=== PATIENT | female | born 1990 | race African-American/Black ===

== ENCOUNTER 2016-11-06 13:15 | Inpatient (IN) | payer OTHER ==
[2016-11-06] MEDS ORDERED: AMPICILLIN - 100 ML IVPB ONE (13:40)
[2016-11-06] MEDS: ELECTROLYTE-148 SOLN 1,000 ML IV SCH ×2 (14:00→18:00)
[2016-11-06 15:04] VITALS: BMI 25.8
[2016-11-06] MEDS ORDERED: BUTORPHANOL TARTRATE 1 MG/ML VIAL IVPUSH ONE (15:09)
--- NOTE | 2016-11-06 15:11 | PN ---
Progress Note (short form) - Note Progress Note: cx 5 cm, 80 vx -2 mi, fhr cat 1, contraction q 3 min, wants pain meds
[2016-11-06 15:37] LABS: BASOPHIL 0.1 % (0-2.0); EOSINOPHIL 0.8 % (0-4.5); MCH 28.2 pg (25.7-33.7); MCHC 32.8 g/dl (32.0-36.0); MEAN CELL VOLUME 85.9 fl (80-96); MEAN PLT VOLUME 9.1 fl (7.5-11.1); NEUTROPHILS 74.5 % (42.8-82.8); PLATELET COUNT 177 K/MM3 (134-434); RDW 15.4 % (11.6-15.6); WHITE BLOOD COUNT 9.5 K/mm3 (4.0-10.0)
[2016-11-06 15:49] LABS: INR 0.91 (0.82-1.09)
[2016-11-06 15:51] LABS: ACTIVATED PTT 29.1 SECONDS (26.9-34.4)
[2016-11-06 16:01] LABS: CALCIUM 8.6 mg/dL (8.5-10.1); COCKROFT - GAULT 162.7835; CREATININE 0.6 mg/dL (0.55-1.02)
[2016-11-06] MEDS ORDERED: OXYTOCIN 15 UNITS/ LR 250 ML 250 ML IVPB SCH ×2 (17:30→18:30)
[2016-11-06] MEDS: AMPICILLIN - 100 ML IVPB SCH ×2 (17:59→22:00)
[2016-11-06] MEDS ORDERED: AMPICILLIN - 100 ML IVPB SCH (18:00)
--- NOTE | 2016-11-06 18:35 | PN ---
Progress Note (short form) - Note Progress Note: cx 5 cm, 80 vx -2, mi ,bulging, arom, clear , fhr cat 1 irregular contraction, on pitocin
--- NOTE | 2016-11-06 21:29 | PN ---
Progress Note (short form) - Note Progress Note: cx 9 cm , 100 vx 0 mr, fhr cat1, contraction q 2min
[2016-11-06] MEDS ORDERED: FENTANYL/BUPIVACAINE/NS/PF - PCEA - 50 ML DISP.SYRIN EP SCH (21:30)
--- NOTE | 2016-11-06 21:34 | HP ---
Past Medical History - Primary Care Physician PCP:: Guillermo Balderrama - Admission Chief Complaint: 39.6 weeks, labor History of Present Illness: 26 yo f ,eedc by sono 11/07/16 in labor, no rom, no bleeding , cx 5 cm 80 vx -2 mi, fhr cat1, contraction irregular, care at [facility] [address] History Source: Patient Limitations to Obtaining History: No Limitations - Past Medical History ...: 6 ...Para: 1 ...Term: 0 ...: 1 ...Spon : 0 ...Induced : 4 ...Multiple Gestation: 0 ...LMP: 02/02/16 ... Weeks Gestation by Dates: 39.5 ...EDC by Dates: 11/08/16 ...EDC by Sono: 12/08/16 Infectious Disease: Yes: STD's (hx of gc chl 3 years ago) - Past Surgical History Hx Myomectomy: No Hx Transabdominal Cerclage: No - Smoking History Smoking history: Current every day smoker Have you smoked in the past 12 months: Yes Aproximately how many cigarettes per day: 2 - Alcohol/Substance Use Hx Alcohol Use: Yes History of Substance Use: reports: None - Social History History of Recent Travel: No Home Medications - Allergies Allergies/Adverse Reactions: Allergies Allergy/AdvReac Type Severity Reaction Status Date / Time No Known Allergies Allergy Verified 11/06/16 14:47 - Home Medications Home Medications: Ambulatory Orders Vits #93/Iron Fum/FA [ Formula Tablet] 1 each PO DAILY Review of Systems - Review of Systems Constitutional: reports: No Symptoms Eyes: reports: No Symptoms HENT: reports: No Symptoms Neck: reports: No Symptoms Cardiovascular: reports: No Symptoms Respiratory: reports: No Symptoms Gastrointestinal: reports: No Symptoms Genitourinary: reports: No Symptoms Breasts: reports: No Symptoms Reported Musculoskeletal: reports: No Symptoms Integumentary: reports: No Symptoms Neurological: reports: No Symptoms Endocrine: reports: No Symptoms Hematology/Lymphatic: reports: No Symptoms Psychiatric: reports: No Symptoms Physical Exam - Maternity Vital Signs: Vital Signs Temperature 98.4 F 11/06/16 20:30 Pulse Rate 83 11/06/16 20:30 Respiratory Rate 18 11/06/16 20:30 Blood Pressure 105/65 11/06/16 20:30 O2 Sat by Pulse Oximetry (%) 100 11/06/16 20:30 Constitutional: Yes: Well Nourished, No Distress, Calm Eyes: Yes: WNL, Conjunctiva Clear, EOM Intact HENT: Yes: WNL, Atraumatic, Normocephalic Neck: Yes: WNL, Supple, Trachea Midline Cardiovascular: Yes: WNL, Regular Rate and Rhythm Breast(s): Yes: WNL - Abdominal Exam/OB Fundal Height: 40 Number of Fetuses: Single Presentation: Vertex Contractions: Yes Regularity: Irregular Intensity: Mod/Strong Monitor Mode: External Heart Rate Location: [facility] Category: I Accelerations: Uniform Decelerations: None - Vaginal Exam/OB Vaginal Bleediing: No Speculum Exam: No Dilatation (cm): 5 cm Effacement (%): 80 Amniotic Membrane Status: Intact Presentation: Vertex/Position Station: -2 - Physical Exam Musculoskeletal: Yes: WNL Edema: LLE: Trace, RLE: Trace Psychiatric: Yes: WNL - Labs Lab Results: CBC, BMP 11/06/16 14:30 11/06/16 14:30 Hemorrhage Risk Assessment - Risk Factors Risk Score: 0 Risk Level: Low Risk Problem List - Problems (1) with 39 completed weeks gestation Code(s): Z3A.39 - 39 WEEKS GESTATION OF (2) Labor established Code(s): UWM4322 - Assessment/Plan admit for vaginal delivery, fhm, if contraction irregular needs pitocin stimulation, rba discussed
[2016-11-06] MEDS ORDERED: ELECTROLYTE-148 SOLN 1,000 ML IV SCH (22:00)
[2016-11-07] MEDS ORDERED: WITCH HAZEL 50% (TUCKS) 40 PAD/JAR PAD TP PRN (00:24)
[2016-11-07] MEDS ORDERED: BENZOCAINE 20% 57 GM BOTTLE TP PRN (00:24)
[2016-11-07] MEDS ORDERED: BENZOCAINE 28 GM HEMORRHOIDAL OINTMENT TP PRN (00:24)
[2016-11-07] MEDS ORDERED: METHYLERGONOVINE MALEATE 0.2 MG/1 ML AMP IM PRN (00:24)
[2016-11-07] MEDS ORDERED: BISACODYL 10 MG SUPP.RECT RC PRN (00:24)
[2016-11-07] MEDS ORDERED: D5W-LR W/ 20 UNITS OXYTOCIN 1,000 ML IV SCH (00:30)
[2016-11-07 00:35] LABS: ART PUNCT SITE OTHER; ARTERIAL BLD GAS O2 SATURATION 61.1 % (90-98.9); ARTERIAL BLOOD GAS HCO3 21.9 meq/L (22-26); ARTERIAL BLOOD GAS pH 7.35 (7.35-7.45); LPM/O2% 21%; PT. ON O2? no
[2016-11-07 00:36] LABS: ARTERIAL BLOOD GAS PO2 30.6 mmHg (80-100); TYPE OF O2 room air
[2016-11-07 00:38] LABS: VENOUS BLOOD GAS HCO3 21.9 meq/L (19-25); VENOUS PH 7.37 (7.32-7.42)
--- NOTE | 2016-11-07 00:39 | PN ---
Progress Note (short form) - Note Progress Note: delivery note paige, cord around neck ,once, reduced , ant and post shoulder no difficulty, live baby boy, 8/9, no episiotomy, no complication, ebl 300 cc Problem List - Problems (1) with 39 completed weeks gestation Code(s): Z3A.39 - 39 WEEKS GESTATION OF (2) Labor established Code(s): AGO1308 -
[2016-11-07] MEDS: ACETAMINOPHEN 325 MG TABLET (FP) PO PRN ×2 (08:04→20:16)
[2016-11-07] MEDS: IBUPROFEN 600 MG TABLET (FP) PO PRN ×2 (08:05→20:16)
[2016-11-07] MEDS: FERROUS SO4 325 MG TABLET (FP) PO SCH ×2 (09:32→21:38)
[2016-11-07] MEDS: PRENATAL VITAMINS W/ FOLIC ACID TABLET (FP) PO SCH (09:32)
[2016-11-07] MEDS ORDERED: DIPHTH,PERTUSS(ACELL),TET 0.5 ML DISP.SYRIN IM ONE (10:00)
[2016-11-07] MEDS ORDERED: PRENATAL VITAMINS W/ FOLIC ACID TABLET (FP) PO SCH (10:00)
[2016-11-08 07:08] LABS: BASOPHIL 0.3 % (0-2.0); EOSINOPHIL 1.7 % (0-4.5); MCH 28.1 pg (25.7-33.7); MCHC 32.8 g/dl (32.0-36.0); MEAN CELL VOLUME 85.6 fl (80-96); MEAN PLT VOLUME 8.6 fl (7.5-11.1); NEUTROPHILS 70.4 % (42.8-82.8); PLATELET COUNT 154 K/MM3 (134-434); RDW 15.7 % (11.6-15.6); WHITE BLOOD COUNT 8.7 K/mm3 (4.0-10.0)
[2016-11-08] MEDS: ACETAMINOPHEN 325 MG TABLET (FP) PO PRN ×2 (07:56→18:04)
[2016-11-08] MEDS: IBUPROFEN 600 MG TABLET (FP) PO PRN ×2 (07:56→18:04)
--- NOTE | 2016-11-08 08:52 | PN ---
Post Progress Note - Subjective Subjective: 26 yo Para 2, status post normal vaginal delivery, seen and evaluated. Doing well. She's breast feeding. Type of Delivery: Vital Signs: Vital Signs Temperature 98.4 F 11/08/16 07:42 Pulse Rate 103 H 11/08/16 07:42 Respiratory Rate 18 11/08/16 07:42 Blood Pressure 115/73 11/08/16 07:42 O2 Sat by Pulse Oximetry (%) 100 11/07/16 01:15 Breast Exam: Yes: Soft Uterus: Yes: Fundus Firm Abdomen/GI: Yes: Abdomen soft, Tolerating PO Lochia: Yes: Rubra Lochia, amount: Moderate Extremities: Yes: Calves non-tender Perineum: Yes: Intact Activity: Ambulating - Labs Labs: CBC WBC 8.7 K/mm3 (4.0-10.0) 11/08/16 06:00 RBC 3.49 M/mm3 (3.60-5.2) L 11/08/16 06:00 Hgb 9.8 GM/dL (10.7-15.3) L D 11/08/16 06:00 Hct 29.9 % (32.4-45.2) L D 11/08/16 06:00 MCV 85.6 fl (80-96) 11/08/16 06:00 MCHC 32.8 g/dl (32.0-36.0) 11/08/16 06:00 RDW 15.7 % (11.6-15.6) H 11/08/16 06:00 Plt Count 154 K/MM3 (134-434) 11/08/16 06:00 MPV 8.6 fl (7.5-11.1) 11/08/16 06:00 Neutrophils % 70.4 % (42.8-82.8) 11/08/16 06:00 Lymphocytes % 19.1 % (8-40) 11/08/16 06:00 Monocytes % 8.5 % (3.8-10.2) 11/08/16 06:00 Eosinophils % 1.7 % (0-4.5) D 11/08/16 06:00 Basophils % 0.3 % (0-2.0) 11/08/16 06:00 Problem List - Problems (1) Status post normal vaginal delivery Code(s): HKR6213 - Assessment/Plan Status post normal vaginal delivery Stable Continue routine care
--- NOTE | 2016-11-08 08:54 | DS ---
Physical Exam-GALLERY [facility]OST Vital Signs: Vital Signs Temperature 98.4 F 11/08/16 07:42 Pulse Rate 103 H 11/08/16 07:42 Respiratory Rate 18 11/08/16 07:42 Blood Pressure 115/73 11/08/16 07:42 O2 Sat by Pulse Oximetry (%) 100 11/07/16 01:15 Constitutional: Yes: Well Nourished Eyes: Yes: Conjunctiva Clear HENT: Yes: Atraumatic Neck: Yes: Supple Cardiovascular: Yes: Regular Rate and Rhythm Respiratory: Yes: Regular Gastrointestinal: Yes: Normal Bowel Sounds External Genitalia: Yes: Normal Vaginal Exam: Yes: Normal Cervix: Yes: Normal Uterus: Yes: Normal ....Post : Yes: Uterus firm, Moderate lochia rubra Breast(s): Yes: WNL, Other (No engorgement) Musculoskeletal: Yes: WNL Extremities: Yes: WNL Integumentary: Yes: WNL Wound/Incision: Yes: Clean/Dry, Well Approximated Neurological: Yes: Alert, Oriented ...Motor Strength: WNL Psychiatric: Yes: Alert, Oriented Labs: CBC, BMP 11/08/16 06:00 11/06/16 14:30 Delivery - Delivery Type of Anesthesia: Epidural Episiotomy/Laceration: None EBL (cc): 300 Delivery, Single - Stages of Labor Date 1st Stage Initiatied: 11/06/16 Time 1st Stage Initiated: 08:00 Date 2nd Stage Initiated: 11/06/16 Time 2nd Stage Initiated: 23:30 Date of Delivery: 11/07/16 Time of Delivery: 00:15 Time Placenta Delivered: 00:23 - Condition of Infant [place] [facility] Lab Technician/Plant Operations Coordinator Present: No Gender: Male Weight: 7 lb 12 oz Position: Left, OA Total Hours ROM (Hrs/Mins): 5h37m - 1 Minute Total Score: 9 5 Minutes Total Score: 9 - Feeding Plan Initial Plan: Elected not to breastfeed exclusively throughout hospitalization Discharge Summary Reason For Visit: LABOR Current Active Problems Labor established (Acute) with 39 completed weeks gestation (Acute) Status post normal vaginal delivery (Acute) Procedures: Principal: Normal spontaneous vaginal delivery Hospital Course: Routine care - Instructions Diet, Activity, Other Instructions: Regular diet No douching no sexual intercourse x 6 weeks F/U in clinic in 6 weeks Referrals: [facility] (Ambar Russell) [Outside] Disposition: HOME - Home Medications Comprehensive Discharge Medication List: Ambulatory Orders Vits #93/Iron Fum/FA [ Formula Tablet] 1 each PO DAILY
[2016-11-08] MEDS: PRENATAL VITAMINS W/ FOLIC ACID TABLET (FP) PO SCH (09:51)
[2016-11-08] MEDS: FERROUS SO4 325 MG TABLET (FP) PO SCH ×2 (09:51→21:41)
[2016-11-08] MEDS ORDERED: PNEUMOC 13-VAL CONJ-DIP CRM/PF 0.5 ML DISP.SYRIN IM ONE (10:00)
[2016-11-08] MEDS ORDERED: INFLUENZA VACCINE 60 MCG/0.5 ML (P/F DISP.SYRIN 16-17) IM ONE (10:00)
[2016-11-08] MEDS ORDERED: PNEUMOCOCCAL 23 VACCINE 0.5 ML VIAL IM ONE (12:15)
[2016-11-08] MEDS ORDERED: SENNOSIDES/DOCUSATE COMBO (SENNA PLUS) TABLET (UD) PO PRN (22:00)
[2016-11-09] MEDS: IBUPROFEN 600 MG TABLET (FP) PO PRN (03:34)
[2016-11-09] MEDS: ACETAMINOPHEN 325 MG TABLET (FP) PO PRN (03:35)
[2016-11-09] MEDS: PRENATAL VITAMINS W/ FOLIC ACID TABLET (FP) PO SCH (09:54)
[2016-11-09] MEDS: FERROUS SO4 325 MG TABLET (FP) PO SCH (09:54)
[2016-11-09 11:16] VITALS: BP 109/77; PULSE 98; TEMP 98.2
== END 2016-11-09 13:50 | disposition home or self-care (01) | DRG 560 ==
LOC: JDEL 13:15 → JLDR 13:40 → J3W 11-07 02:10
PROVIDERS: ADMIT Obstetrics & Gynecology; ATTEND Obstetrics & Gynecology
PROC: 10E0XZZ Delivery of Products of Conception, External Approach (ICD-10-PCS; principal; 2016-11-07)
DX: O69.81X0 Labor and delivery complicated by cord around neck, without compression, not applicable or unspecified (principal); Z3A.39 39 weeks gestation of pregnancy; Z37.0 Single live birth
CPT/HCPCS: 36415; 36600; 59409; 80048; 82803; 85025; 85610; 85730; 86593; 86850; 86900; 86901; 90686; 90715; 90732; G0008; G0009